=== PATIENT | female | born 1940 | race Caucasian/White ===

== ENCOUNTER 2022-06-30 16:55 | Inpatient (IN) | payer OTHER, MEDICAID ==
[~2022-06-30] VITALS: Ht 160 cm; Wt 100.7 kg
[2022-06-30] MEDS: ATORVASTATIN 20 MG TAB PO SCH (00:50)
[2022-06-30 17:11] VITALS: BP 196/87
--- NOTE | 2022-06-30 17:20 | NUR ---
PT W/C ASSISTED TO BED 3.
--- NOTE | 2022-06-30 17:21 | NUR ---
[facility] [phone].
[2022-06-30 18:44] LABS: BASOPHILS # (AUTO) 0.1 K/uL (0.00-0.22); BASOPHILS % (AUTO) 0.8 % (0.0-2.0); EOSINOPHILS # (AUTO) 0.2 K/uL (0-0.4); EOSINOPHILS % (AUTO) 3.2 % (0.0-4.0); HEMATOCRIT 37.7 % (36-48); HEMOGLOBIN 12.5 g/dL (12.0-16.0); LYMPHOCYTES # (AUTO) 2.6 K/uL (2.5-16.5); LYMPHOCYTES % (AUTO) 35.7 % (20.5-51.1); MEAN CORPUSCULAR HEMOGLOBIN 31 pg (27-31); MEAN CORPUSCULAR HGB CONC 33 g/dL (33-37); MEAN CORPUSCULAR VOLUME 93.4 fL (80-94); MONOCYTES # (AUTO) 0.6 K/uL (0.8-1.0); MONOCYTES % (AUTO) 8.9 % (1.7-9.3); NEUTROPHILS # (AUTO) 3.7 K/uL (1.8-7.7); NEUTROPHILS % (AUTO) 51.4 % (42.2-75.2); PLATELET COUNT (AUTO) 286 K/uL (140-450); RED BLOOD CELL COUNT(AUTO) 4.04 MIL/uL (4.20-5.40); RED CELL DISTRIBUTION WIDTH 14.2 % (11.6-13.7); WHITE BLOOD COUNT (AUTO) 7.3 K/uL (4.8-10.8)
[2022-06-30] MEDS ORDERED: ASPIRIN 325 MG TAB PO ONE (18:50)
[2022-06-30 19:09] LABS: ALBUMIN 3.8 g/dL (3.4-5.0); ASPARTATE AMINOTRANSFERASE 7 U/L (15-37); CARBON DIOXIDE 26.5 mmol/L (21-32); CHLORIDE 102 mmol/L (98-107); CREATININE 1.5 mg/dL (0.6-1.3); GLUCOSE 256 mg/dL (74-106); POTASSIUM 3.5 mmol/L (3.5-5.1); SODIUM SERUM 139 mmol/L (136-145); TOTAL BILIRUBIN 0.3 mg/dL (0.0-1.0); UREA NITROGEN, BLOOD 26 mg/dL (7-18)
[2022-06-30] MEDS: NACL 0.9% 1,000 ML IV SCH (21:34)
[2022-06-30] MEDS ORDERED: ATOR20TA40 PO (22:27)
[2022-06-30] MEDS ORDERED: AMLO10TA89 PO (22:27)
[2022-06-30] MEDS ORDERED: INSU100S22 SUBQ (22:27)
[2022-06-30] MEDS ORDERED: METO100T99 PO (22:27)
[2022-06-30] MEDS ORDERED: HYDR25TA32 PO (22:27)
[2022-06-30] MEDS ORDERED: TICA90TA PO (22:27)
[2022-06-30] MEDS ORDERED: INSU-1163 SQ (22:27)
--- NOTE | 2022-06-30 22:30 | NUR ---
Report given for transfer of care Addendum: 07/01/22 at 0548 by [email or web address] Report given to Mariah FONSECA
[2022-06-30] MEDS ORDERED: DOCUSATE SODIUM 100 MG GELCAP PO PRN (22:45)
[2022-06-30] MEDS ORDERED: guaiFENesin DM 200/20 MG-10 ML 10 ML UDC PO PRN (22:45)
[2022-06-30] MEDS ORDERED: ZOLPIDEM 5 MG TAB PO PRN (22:45)
[2022-06-30] MEDS ORDERED: ACETAMINOPHEN 325 MG TAB PO PRN (22:45)
[2022-06-30] MEDS ORDERED: ONDANSETRON 4 MG/2 ML VIAL IM/IVP PRN (22:45)
[2022-06-30] MEDS ORDERED: POTASSIUM CHLORIDE 10 MEQ TABER PO PRN (22:45)
[2022-06-30] MEDS ORDERED: HYDROcodone/APAP 7.5/325 MG 1 TAB PO PRN (22:45)
[2022-06-30] MEDS ORDERED: DEXTROSE 50% 50 ML SYR IVP PRN (22:50)
[2022-06-30 23:09] LABS: PROTHROMBIN TIME 10.3 secs (10.8-13.4)
[2022-06-30 23:13] VITALS: BP 140/82
--- NOTE | 2022-06-30 23:13 | NUR ---
RECEIVED PT . AAOX4 , FROM ER , NO C/O PAIN AT THIS TIME , IV SITE INTACT AND PATENT , AMBULATES TO BED , ON TELE MONITOR , ADMISSION ASSESSMENT - DONE , FALL RISK - PUT PT ON FALL PREVENTION PROTOCOL , CALL LIGHT WITHIN REACH , WILL PROVIDE BED SIDE COMMODE , DENIES SOB O2 SAT WNL . WILL CONT. TO MONITOR
[2022-06-30 23:16] LABS: CHOL/HDL RATIO 2.8 (1-4.5); FREE T4 (FREE THYROXINE) 1.03 ng/dL (0.76-1.46); MAGNESIUM 1.8 mg/dL (1.8-2.4); PHOSPHORUS 3.5 mg/dL (2.5-4.9); THYROID STIMULATING HORMONE 1.07 uIU/mL (0.34-3.74)
[2022-07-01] MEDS ORDERED: INSULIN LISPRO 100 UNITS/ML VIAL SUBQ SCH ×2 (00:05→21:00)
--- NOTE | 2022-07-01 00:08 | NUR ---
BS 320 - PER PT SHE MISSED HER INSULIN TODAY - WILL REFER Addendum: 07/01/22 at 0745 by Mariah Sheehan RN DR. BROOKS RESPONDED , MADE NEW ORDERS - WILL CARRY OUT .
[2022-07-01] MEDS ORDERED: INSULIN LANTUS 100 UNITS/ML 10 ML VIAL SUBQ SCH ×2 (00:10→21:00)
[2022-07-01 04:00] VITALS: BP 140/90
--- NOTE | 2022-07-01 04:00 | NUR ---
ROUNDS , NO S/SX OF ACUTE DISTRESS NOTED , WILL CONT. TO MONITOR , CALL LIGHT WITHIN REACH .
[2022-07-01 05:11] LABS: APPEARANCE,URINE CLEAR (CLEAR); BILIRUBIN,URINE NEGATIVE (NEGATIVE); BLOOD, URINE NEGATIVE (NEGATIVE); COLOR,URINE YELLOW (YELLOW); LEUKOCYTE ESTERASE ,URINE NEGATIVE (NEGATIVE); NITRITE, URINE NEGATIVE (NEGATIVE); UGLUCOSE 3+ (NEGATIVE)
--- NOTE | 2022-07-01 06:11 | NUR ---
C/O BATES , BP 140/90 - WILL MEDICATE , O2 SAT 97 5 , CALL LIGHT WITHIN REACH
--- NOTE | 2022-07-01 06:28 | NUR ---
ENDORSED IN STABLE CONDITION ENDORSED FOR CONT. FO CARE . LATEST BP 145/ 86
[2022-07-01] MEDS: INSULIN LISPRO SLIDING SCALE 100 UNITS/ML VIAL SUBQ PRN ×4 (06:36→20:17)
[2022-07-01] MEDS: BLOOD GLUCOSE MONITORING 1 DEV DEV FS SCH ×4 (06:36→20:13)
[2022-07-01 06:42] LABS: ANION GAP 10.5 (8-16); CARBON DIOXIDE 31.4 mmol/L (21-32); CHLORIDE 101 mmol/L (98-107); CREATININE 1.3 mg/dL (0.6-1.3); GLUCOSE 319 mg/dL (74-106); POTASSIUM 3.9 mmol/L (3.5-5.1); SODIUM SERUM 139 mmol/L (136-145); UREA NITROGEN, BLOOD 23 mg/dL (7-18)
[2022-07-01 06:49] LABS: BASOPHILS % (AUTO) 0.4 % (0.0-2.0); EOSINOPHILS # (AUTO) 0.3 K/uL (0-0.4); EOSINOPHILS % (AUTO) 3.7 % (0.0-4.0); HEMATOCRIT 38.9 % (36-48); LYMPHOCYTES # (AUTO) 2.2 K/uL (2.5-16.5); LYMPHOCYTES % (AUTO) 31.9 % (20.5-51.1); MEAN CORPUSCULAR HEMOGLOBIN 31 pg (27-31); MEAN CORPUSCULAR HGB CONC 33 g/dL (33-37); MEAN CORPUSCULAR VOLUME 93.2 fL (80-94); MONOCYTES # (AUTO) 0.6 K/uL (0.8-1.0); MONOCYTES % (AUTO) 8.8 % (1.7-9.3); NEUTROPHILS # (AUTO) 3.9 K/uL (1.8-7.7); NEUTROPHILS % (AUTO) 55.2 % (42.2-75.2); PLATELET COUNT (AUTO) 304 K/uL (140-450); RED BLOOD CELL COUNT(AUTO) 4.17 MIL/uL (4.20-5.40)
--- NOTE | 2022-07-01 07:30 | NUR ---
RECEIVED REPORT FROM NIGHTSHIFT NURSE. PT A/O X4. ABLE TO MAKE NEEDS KNOWN. DENIES PAIN. ON RA. NS @ 60 ML/HR ON R HAND #22. BSC AT BEDSIDE. ENCOURAGE TO USE CALL LIGHT FOR NEEDS. NEEDS ALL MET AT THIS TIME. ALL SAFETY MEASURES IN PLACE.
[2022-07-01 08:00] VITALS: BP 177/85
[2022-07-01] MEDS: PANTOPRAZOLE 40 MG TABEC PO SCH (08:29)
[2022-07-01] MEDS: METOPROLOL SUCCINATE 50 MG TABER PO SCH (08:29)
[2022-07-01] MEDS: amLODIPine 5 MG TAB PO SCH (08:30)
[2022-07-01] MEDS: hydroCHLOROthiazide 25 MG TAB PO SCH (08:30)
--- NOTE | 2022-07-01 10:37 | NUR ---
PATIENT HAS BEEN SCREENED AND CATEGORIZED MODERATE NUTRITION RISK. PATIENT WILL BE SEEN WITHIN 3-5 DAYS OF ADMISSION. RECOMMENDED ADDING [id number] DIET. RN ACKNOWLEDGED. MARYANN BLAIR RD
--- NOTE | 2022-07-01 11:30 | NUR ---
PT AMBULATED TO AND FROM BATHROOM ASSISTED. PT WITH BM. PT IN NO ACUTE DISTRESS AT THIS TIME. ALL SAFETY MEASURES IN PLACE.
[2022-07-01 12:00] VITALS: BP 154/67
[2022-07-01] MEDS: NACL 0.9% 1,000 ML IV SCH (12:52)
--- NOTE | 2022-07-01 13:30 | NUR ---
PT'S DAUGHTER (CHARLIE) AT BEDSIDE. POC UPDATED. PT'S DAUGHTER STATES PT HAS NOT BEEN HAVING GOOD SLEEP FOR THE PAST 2 DAYS. EXPLAINED TO PT THAT THERE IS A PRN MEDICATION TO HELP WITH SLEEP AND TO ASK NIGHTSHIFT NURSE. PT VERBALIZED UNDERSTANDING. ALL NEEDS MET. ALL SAFETY MEASURES IN PLACE.
[2022-07-01 16:00] VITALS: BP 129/56
--- NOTE | 2022-07-01 16:28 | NUR ---
DC PLANNING ASSESSMENT COMPLETE PLEASE REFER TO ASSESSMENT FOR DETAILS PT REPORTS DC PLAN IS TO RETURN HOME WITH FAMILY PROVIDING TRANSPORTATION WHEN MEDICALLY STABLE. Addendum: 07/01/22 at 1629 by Kyler BANKS Amended: Links added.
--- NOTE | 2022-07-01 18:29 | NUR ---
PT AWAKE FROM SLEEP. PT CONFUSED STATING, "I WANT TO GO IN MY ROOM". REORIENTED PT. EXPLAINED TO PT PT IS AT [facility]. PT STATES, "THIS ISN'T MY ROOM". REORIENTED PT AND PT WAS ABLE TO REMEMBER SHE WAS AT [facility] AND THAT HER DAUGHTER CAME TO VISIT TODAY. A/O X4. NEURO INTACT. PT LAUGHING STATING IT MIGHT'VE BEEN THE LACK OF SLEEP. ASSISTED PT TO AND FROM BATHROOM WHILE PT WAS STILL LAUGHING THAT SHE FORGOT [facility]. ASSISTED PT BACK IN BED. PROVIDED DINNER TRAY. ALL NEEDS MET AT THIS TIME.
--- NOTE | 2022-07-01 19:16 | NUR ---
BEDSIDE REPORT GIVEN TO NIGHTSHIFT NURSE
--- NOTE | 2022-07-01 19:17 | NUR ---
RECEIVED REPORT FROM DAY SHIFT NURSE KAROLINE FOR CONTINUITY OF CARE. PT A/A/O, SITTING IN BED. RESPIRATIONS EVEN AND UNLABORED ON RA. DENIES PAIN. NO DISTRESS NOTED. SKIN INTACT, WARM AND DRY TO TOUCH. IV SITE ON RIGHT HAND G22 INFUSING IVF. POC DISCUSSED WITH PT AND RAYMUNDO ESPANA. QUESTIONS ANSWERED. CALL LIGHT WITHIN REACH. SAFETY PRECAUTIONS IN PLACE.
[2022-07-01 20:00] VITALS: BP 156/69
--- NOTE | 2022-07-01 20:00 | NUR ---
Patient's Plan of Care was discussed and reviewed with SOCIAL WORK ADMINISTRATOR: ROBIN PRIETO
[2022-07-01] MEDS: ATORVASTATIN 20 MG TAB PO SCH (20:14)
--- NOTE | 2022-07-01 20:23 | NUR ---
ADMINISTERED DUE MEDS. PT TOLERATED WELL.
[2022-07-01] MEDS ORDERED: INSULIN GLARGINE HUM REC ANLOG 38 UNIT SUBQ SCH (21:00)
[2022-07-02] VITALS: BP 142/63
[2022-07-02] MEDS: NACL 0.9% 1,000 ML IV SCH (03:30)
[2022-07-02 04:00] VITALS: BP 154/72
--- NOTE | 2022-07-02 04:28 | NUR ---
V/S TAKEN. ASSISTED PT TO THE REST ROOM. DENIES PAIN. NO SOB. NO DIZZINESS. NO DISTRESS NOTED.
[2022-07-02] MEDS: INSULIN LISPRO SLIDING SCALE 100 UNITS/ML VIAL SUBQ PRN ×3 (06:33→16:09)
[2022-07-02] MEDS: BLOOD GLUCOSE MONITORING 1 DEV DEV FS SCH ×3 (06:33→16:08)
[2022-07-02 07:03] LABS: ANION GAP 12.2 (8-16); BASOPHILS % (AUTO) 0.3 % (0.0-2.0); CARBON DIOXIDE 28.2 mmol/L (21-32); CHLORIDE 104 mmol/L (98-107); EOSINOPHILS # (AUTO) 0.3 K/uL (0-0.4); EOSINOPHILS % (AUTO) 4.2 % (0.0-4.0); GLUCOSE 213 mg/dL (74-106); HEMATOCRIT 39.1 % (36-48); HEMOGLOBIN 13.1 g/dL (12.0-16.0); LYMPHOCYTES % (AUTO) 33.1 % (20.5-51.1); MEAN CORPUSCULAR HEMOGLOBIN 32 pg (27-31); MEAN CORPUSCULAR HGB CONC 34 g/dL (33-37); MEAN CORPUSCULAR VOLUME 93.7 fL (80-94); MONOCYTES # (AUTO) 0.6 K/uL (0.8-1.0); MONOCYTES % (AUTO) 9.3 % (1.7-9.3); NEUTROPHILS # (AUTO) 3.3 K/uL (1.8-7.7); NEUTROPHILS % (AUTO) 53.1 % (42.2-75.2); PLATELET COUNT (AUTO) 295 K/uL (140-450); POTASSIUM 3.4 mmol/L (3.5-5.1); RED BLOOD CELL COUNT(AUTO) 4.17 MIL/uL (4.20-5.40); RED CELL DISTRIBUTION WIDTH 14.3 % (11.6-13.7); SODIUM SERUM 141 mmol/L (136-145); UREA NITROGEN, BLOOD 18 mg/dL (7-18); WHITE BLOOD COUNT (AUTO) 6.1 K/uL (4.8-10.8)
--- NOTE | 2022-07-02 07:15 | NUR ---
RECEIVED REPORT FROM NIGHT NURSE ROBIN FOR CONTINUITY OF CARE. INITIAL ASSESSMENT DONE. IVF INFUSING WELL. NOT IN ANY DISTRESS NOTED. CALL LIGHT KEPT WITHIN REACH. WILL CONTINUE TO MONITOR.
--- NOTE | 2022-07-02 07:16 | NUR ---
GAVE BEDSIDE REPORT TO JAY LONG. PT IS STABLE.
[2022-07-02 08:00] VITALS: BP 148/75
--- NOTE | 2022-07-02 08:00 | NUR ---
Patient's Plan of Care was discussed and reviewed with CUFFER: ETHAN FRANKLIN
[2022-07-02 08:08] LABS: T4 (THYROXINE) 6.5 ug/dL (4.5-12.0)
[2022-07-02] MEDS: METOPROLOL SUCCINATE 50 MG TABER PO SCH (09:17)
[2022-07-02] MEDS: PANTOPRAZOLE 40 MG TABEC PO SCH (09:17)
[2022-07-02] MEDS: hydroCHLOROthiazide 25 MG TAB PO SCH (09:18)
[2022-07-02] MEDS: amLODIPine 5 MG TAB PO SCH (09:18)
--- NOTE | 2022-07-02 09:18 | NUR ---
ADMINISTERED SCHEDULED MEDICATIONS. TOLERATING WELL.
--- NOTE | 2022-07-02 11:34 | NUR ---
BS CHECKED 271. PRN K- DUR PO GIVEN FOR POTASSIUM 3.4. TOLERATING WELL.
--- NOTE | 2022-07-02 11:48 | NUR ---
INSULIN WAS GIVEN PER SLIDING SCALE.
[2022-07-02 16:00] VITALS: BP 142/65
--- NOTE | 2022-07-02 16:09 | NUR ---
BS CHECKED 332. INSULIN WAS GIVEN PER SLIDING SCALE.
--- NOTE | 2022-07-02 16:40 | NUR ---
PT LEFT HOSPITAL. TRANSPORTED BY PRIVATE VEHICLE, ACCOMPANIED BY GRAND DAUGHTER PER WHEELCHAIR. ALERT AND VERBALLY RESPONSIVE. RESP. EVEN AND UNLABORED. NOT IN ANY DISTRESS NOTED. IV AND ID BAND REMOVED. DISCHARGE PAPERWORK DISCUSS AND SIGN BY PT. PERSONAL BELONGINGS TAKEN. REMAINS STABLE.
== END 2022-07-02 17:49 | disposition home or self-care (01) | DRG 313 ==
LOC: MED 16:55 → MTU 20:42 → OBSVTOIN 07-01 14:36
PROVIDERS: ADMIT Family Medicine; ATTEND Family Medicine
DX: R07.89 Other chest pain (principal); N17.9 Acute kidney failure, unspecified; I25.10 Atherosclerotic heart disease of native coronary artery without angina pectoris; E11.65 Type 2 diabetes mellitus with hyperglycemia; D72.818 Other decreased white blood cell count; D72.810 Lymphocytopenia; E78.5 Hyperlipidemia, unspecified; Z20.822 Contact with and (suspected) exposure to COVID-19; I12.9 Hypertensive chronic kidney disease with stage 1 through stage 4 chronic kidney disease, or unspecified chronic kidney disease; E11.22 Type 2 diabetes mellitus with diabetic chronic kidney disease; N18.32 Chronic kidney disease, stage 3b; Z88.2 Allergy status to sulfonamides; Z91.041 Radiographic dye allergy status; Z79.899 Other long term (current) drug therapy; Z79.4 Long term (current) use of insulin
CPT/HCPCS: 99285; G0378; 36415; 71045; 80048; 80053; 81003; 82150; 82948; 83036; 83690; 83735; 83880; 84100; 84436; 84439; 84443; 84479; 84484; 85025; 85610; 85730; 87081; 93005; J1815; Q0092